=== PATIENT | female | born 1970 | race Caucasian/White ===

== ENCOUNTER 2019-12-26 19:20 | Emergency (ER) | payer MEDICAID ==
[~2019-12-26] VITALS: Ht 175.3 cm; Wt 90.9 kg
[~2019-12-26 19:20] MED LIST: ADVAIR 250/28 DISKU1 IH; ASPI325T6 PO; CALCIUM + D 6001 TA1 PO; COLACE 100100 MG/CAP PO; EXALGO12 MG PO; FLORASTOR250 MG PO; FLOVENT 220MCG7.9 GM IH; IBU-TAB800 MG PO; LANTUS100 U/ML SC; LEVEMIR100 U/ML SC; LISINOPRIL10 MG PO; NOVOLOG FLEX100 U/ML SC; NYSTATIN CREAM15 GM TP; OMEGA 31000 MG PO; OPANA10 MG PO; PHENERGAN 25 TA25 MG PO; PRILOSEC 20MG20 MG PO; PROZAC20 MG PO; ROXICODONE30 MG PO; SEPTRA DS 8001 TAB PO; SYNTHROID 0.0.025 MG PO; SYNTHROID0.075 MG/T; TYLENOL EXTRA500 M1 PO; ZOLOFT 50MG50 MG PO
[2019-12-26 19:22] VITALS: TEMP 98.7
[2019-12-26 20:49] LABS: BASO # 0.1 (0.0-0.2); BASO % 0.3 % (0.0-2.0); EOS # 0.2 (0.0-0.7); EOS % 1.4 % (0-4.0); GRAN # 10.9 (1.4-6.5); HEMATOCRIT 47.2 % (37.0-47.0); HEMOGLOBIN 15.5 g/dl (12.5-16.0); LYMPH # 4.3 (1.2-3.4); LYMPH % 26.2 % (20.0-51.0); MEAN CELL VOLUME 93 fl (80.0-100.0); MEAN CORPUSCULAR HEMOGLOBIN 30 pg (27.0-31.0); MEAN CORPUSCULAR HGB CONC 33 g/dl (33.0-37.0); MEAN PLATELET VOLUME 9.9 fl (7.4-10.4); MONO # 0.9 (0.1-0.6); MONO % 5.3 % (1.7-9.3); PLATELET COUNT 370 K/mm3 (130-400); REDCELL DISTRIBUTION WIDTH-CV 13.3 % (11.5-14.5)
[2019-12-26 20:54] LABS: PROTHROMBIN TIME 11.7 SECONDS (9.7-12.8)
[2019-12-26 20:58] LABS: ALBUMIN 4.4 gm/dL (3.5-5.0); BILIRUBIN,TOTAL 0.7 mg/dL (0.0-1.0); CALCIUM 9.3 mg/dL (8.4-10.2); CREATININE, serum 0.61 (0.52-1.25); POTASSIUM 3.5 mmol/L (3.4-5.0); TOTAL PROTEIN 7.7 gm/dL (6.4-8.2)
[2019-12-26 21:45] VITALS: BP 162/86; PULSE 89
== END 2019-12-26 21:58 | disposition short-term general hospital (02) ==
LOC: COL.ER 19:20
PROVIDERS: Emergency Medicine
DX: S32.011A Stable burst fracture of first lumbar vertebra, initial encounter for closed fracture (principal); E11.9 Type 2 diabetes mellitus without complications; J44.9 Chronic obstructive pulmonary disease, unspecified; F17.210 Nicotine dependence, cigarettes, uncomplicated; Z79.51 Long term (current) use of inhaled steroids; Z79.82 Long term (current) use of aspirin; V49.9XXA Car occupant (driver) (passenger) injured in unspecified traffic accident, initial encounter
CPT/HCPCS: J1170; J2550; J7030

== ENCOUNTER 2023-02-22 11:58 | Day surgery (SDC) | payer MEDICAID ==
[2023-02-22] VITALS (12 sets, daily range): BP systolic 100–148; BP diastolic 49–94; PULSE 86–102; TEMP 98.6–99.2
[~2023-02-22] VITALS: Ht 160 cm; Wt 93.8 kg
[2023-02-22 13:07] LABS: HEMATOCRIT 46.1 % (37.0-47.0); HEMOGLOBIN 15.8 g/dl (12.5-16.0); MEAN CELL VOLUME 91 fl (80.0-100.0); MEAN CORPUSCULAR HEMOGLOBIN 31 pg (27-31); MEAN CORPUSCULAR HGB CONC 34 g/dl (33.0-37.0); MEAN PLATELET VOLUME 10.8 fl (7.4-10.4); PLATELET COUNT 395 K/mm3 (130-400); RED BLOOD COUNT 5.05 M/mm3 (4.10-5.30); REDCELL DISTRIBUTION WIDTH-CV 13.1 % (11.5-14.5)
[2023-02-22 13:14] LABS: CREATININE, serum 1.09 mg/dL (0.57-1.11); POTASSIUM 3.7 mmol/L (3.5-4.5)
[2023-02-22 13:27] LABS: PARTIAL THROMBOPLASTIN TIME 32.4 SECONDS (26.0-37.0)
[2023-02-22] MEDS ORDERED: PROAIR HFA0.09 MG/AC IH (14:32)
[2023-02-22] MEDS ORDERED: NORVASC 5MG5 MG/TAB PO (14:32)
[2023-02-22] MEDS ORDERED: CLEOCIN HCL300 MG PO (14:33)
[2023-02-22] MEDS ORDERED: LIPITOR20 MG PO (14:33)
[2023-02-22] MEDS ORDERED: FLEXERIL 1010 MG/TAB PO (14:34)
[2023-02-22] MEDS ORDERED: CYMBALTA 30MG30 MG PO (14:34)
[2023-02-22] MEDS ORDERED: PROSCAR 5MG5 MG PO (14:34)
[2023-02-22] MEDS ORDERED: WIXELA 250-501 EACH IH (14:35)
[2023-02-22] MEDS ORDERED: LASIX 20MG TABL20 MG PO (14:35)
[2023-02-22] MEDS ORDERED: PREVACID 30MG30 M1 PO (14:36)
[2023-02-22] MEDS ORDERED: HUMULIN R 10100 U/ML SQ (14:36)
[2023-02-22] MEDS ORDERED: TIROSINT50 MC1 PO (14:37)
--- NOTE | 2023-02-22 14:37 | NUR ---
PLEASE SEE MERGE DOCUMENTATION FOR RECORD OF INTERVENTIONS, VITALS AND MEDICATIONS ADMINISTERED DURING PROCEDURE.
[2023-02-22] MEDS ORDERED: DAZIDOX20 MG PO (14:38)
[2023-02-22] MEDS ORDERED: PHENERGAN 25 TA25 MG PO (14:38)
[2023-02-22] MEDS ORDERED: OXYCONTIN 20MG20 MG PO (14:38)
[2023-02-22] MEDS ORDERED: TRESIBA FL100 UNIT/1 SQ (14:39)
[2023-02-22] MEDS ORDERED: ALDACTONE 100M100 MG PO (14:39)
[2023-02-22] MEDS ORDERED: TRULANCE3 MG PO (14:40)
--- NOTE | 2023-02-22 15:51 | NUR ---
Pt to room 308 on medical floor. R radial band on, with no hematoma. CMS WNL, radial pulse strong. No active bleed at this time; angiomax infusing. Post-op vitals in place.
[2023-02-22] MEDS ORDERED: SPIRIVA RE2.5 MCG/Ac IH (16:23)
[2023-02-22] MEDS ORDERED: ZOLOFT 100MG100 MG PO (16:24)
[2023-02-22] MEDS ORDERED: JARDIANCE25 PO (16:29)
[2023-02-22] MEDS ORDERED: HUMIRA(CF)80 MG/0.8 SQ (16:30)
[2023-02-22] MEDS ORDERED: 00186-0370-20 IH (16:32)
[2023-02-22] MEDS ORDERED: TESSALON P100 MG/CAP PO (16:33)
[2023-02-22] MEDS ORDERED: NITROSTAT0.4 MG/TAB SL (16:34)
[2023-02-22] MEDS ORDERED: HUMIRA PEN80 MG/0.8 SQ (16:38)
--- NOTE | 2023-02-22 19:42 | NUR ---
THIS RN REVIEWED ADMISSION INTAKE AND ASSESSMENT COMPLETED BY ZOILA DOMINGUEZ AND AGREES WITH DOCUMENTATION.
--- NOTE | 2023-02-22 22:00 | NUR ---
Pt sitting in bed upon this nurse's entry to room. A&Ox4. Pleasant and sociable demeanor. Scheduled PM medications admin w/o difficulty PO. Pt c/o 10 back pain that is like "stomping on back". Pain medication admin w/ PM medications. Respirations are even and unlabored on room air. Radial band intact to right wrist. 5cc of air removed by JACOBO Sanchez. Radial band removed w/o complications. Coban drsg applied to right wrist. Shift assessment completed. Pt reports nausea w/ dizziness. PRN antiemetic admin. Pt has no further complaints or concerns. Call light in reach.
[2023-02-23 00:07] VITALS: BP 125/64; PULSE 91; TEMP 98.1
[2023-02-23 00:09] VITALS: BP_SYST 125
[2023-02-23 03:45] VITALS: BP 133/88; PULSE 78; TEMP 98.1
[2023-02-23 03:56] VITALS: BP_SYST 133
--- NOTE | 2023-02-23 05:59 | NUR ---
Pt lying in bed w/ eyes closed in dark room. Arouses w/ ease. A&Ox4. Scheduled AM medications admin PO w/o difficulty. Pt has no complaints or concerns. Call light in reach.
[2023-02-23 06:36] LABS: BASO # 0.1 K/mm3 (0.0-0.2); BASO % 0.5 % (0.0-2.0); EOS # 0.2 K/mm3 (0.0-0.7); EOS % 1.4 % (0.0-4.0); GRAN % 54.5 % (42.2-75.2); HEMOGLOBIN 13.9 g/dl (12.5-16.0); LYMPH # 4.1 K/mm3 (1.2-3.4); LYMPH % 36.9 % (20.0-51.0); MEAN CELL VOLUME 91 fl (80.0-100.0); MEAN CORPUSCULAR HEMOGLOBIN 32 pg (27-31); MEAN CORPUSCULAR HGB CONC 35 g/dl (33.0-37.0); MEAN PLATELET VOLUME 10.8 fl (7.4-10.4); MONO # 0.7 K/mm3 (0.1-0.6); PLATELET COUNT 317 K/mm3 (130-400); RED BLOOD COUNT 4.38 M/mm3 (4.10-5.30); REDCELL DISTRIBUTION WIDTH-CV 13.2 % (11.5-14.5)
[2023-02-23 06:57] LABS: CREATININE, serum 0.81 mg/dL (0.57-1.11); POTASSIUM 4.1 mmol/L (3.5-4.5)
[2023-02-23 07:31] VITALS: BP 128/65; PULSE 83; TEMP 99.3
--- NOTE | 2023-02-23 08:00 | NUR ---
Blood glucose - 442 this morning, AGUSTINA Jacobs notified.
--- NOTE | 2023-02-23 08:01 | NUR ---
Pt eating breakfast upon entering room. Morning medications administered per eMAR. Shift assessment completed. VSS. Pt is able to maintain eyes open during conversation, responds appropriately. Telemetry remains on - SR. 1/2NS infusing at 100mL/hr in L forearm; patent, no edema or redness. Incision site in R wrist with coban in place, as pt is allergic to tape/adhesive. No request at this time. Call light within reach.
[2023-02-23 09:00] VITALS: BP_SYST 128
--- NOTE | 2023-02-23 09:20 | NUR ---
Contact information and CVD risk factor information was left for patient due to resting comfortably. Staff will revist prior to discharge. Referral will be sent to [facility] unless requested otherwise by patient.
[2023-02-23] MEDS ORDERED: LIPITOR 80MG80 MG PO (09:46)
[2023-02-23] MEDS ORDERED: PLAVIX 75MG TAB75 MG PO (09:47)
[2023-02-23] MEDS ORDERED: ASPI325T6 PO (09:49)
[2023-02-23] MEDS ORDERED: ASPIRIN E.C. 8181 MG PO (10:36)
--- NOTE | 2023-02-23 11:02 | NUR ---
Pt discharge instructions given, all questions answered. IV in L forearm discontinued.
--- NOTE | 2023-02-23 11:17 | NUR ---
Pt escorted out of facility by PCT.
== END 2023-02-23 11:17 | disposition home or self-care (01) ==
LOC: COL.CAR 11:58 → MEDICAL 15:35 → COL.CAR 02-23 11:17
PROVIDERS: Internal Medicine Interventional Cardiology; Nurse Practitioner
DX: I25.10 Atherosclerotic heart disease of native coronary artery without angina pectoris (principal); F17.210 Nicotine dependence, cigarettes, uncomplicated; E78.5 Hyperlipidemia, unspecified; E78.00 Pure hypercholesterolemia, unspecified; E11.9 Type 2 diabetes mellitus without complications; Z79.4 Long term (current) use of insulin; R68.89 Other general symptoms and signs; E66.9 Obesity, unspecified; Z68.35 Body mass index [BMI] 35.0-35.9, adult; Z79.02 Long term (current) use of antithrombotics/antiplatelets; Z79.899 Other long term (current) drug therapy; Z28.310 Unvaccinated for COVID-19
CPT/HCPCS: OP; C1725; C1769; C1874; C1887; C9600; J0583; J1200; J1644; J1815; J2250; J2550; J3010; Q9967